=== PATIENT | female | born 1980 | race Caucasian/White ===

== ENCOUNTER 2019-03-14 18:45 | Emergency (ER) | payer BC, SELFPAY ==
--- NOTE | 2019-03-14 18:51 | DI.RAD.S_ITS ---
PROCEDURE: XR NASAL BONES MIN 3V INDICATIONS: injury TECHNIQUE: 3 views of the nasal bones acquired. COMPARISON: None. FINDINGS: Bones: No fractures or dislocations. Nasal septum is midline. Normal nasociliary nerve grooves are noted. Soft tissues: No suspicious soft tissue calcifications. IMPRESSION: A definite fracture or subluxation is not seen. Followup by CT scanning may be warranted. Dictated by: Luis E Guillaume M.D. on 03/14/2019 at 20:04 Approved by: Luis E Guillaume M.D. on 03/14/2019 at 20:05
[2019-03-14 19:37] VITALS: BP 122/76; PULSE 64; RESP 18; TEMP 36.4; O2SAT 100
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
== END 2019-03-14 20:25 | disposition home or self-care (01) ==
PROVIDERS: Emergency Provider Emergency Medicine; Family Provider Family Medicine; PCP Family Medicine
DX: S02.2XXA Fracture of nasal bones, initial encounter for closed fracture (principal); W50.1XXA Accidental kick by another person, initial encounter
CPT/HCPCS: 70160; 99282; 99283